=== PATIENT | female | born 1975 | race Caucasian/White ===

== ENCOUNTER 2018-02-24 10:40 | Emergency (ER) | payer BC ==
[~2018-02-24] VITALS: Ht 147.3 cm; Wt 66.2 kg
[2018-02-24 10:57] VITALS: BP_SYST 121
[2018-02-24 13:57] VITALS: BP_SYST 118
== END 2018-02-24 13:57 | disposition home or self-care (01) ==
LOC: SED 10:40
DX: S93.402A Sprain of unspecified ligament of left ankle, initial encounter (principal); Z90.710 Acquired absence of both cervix and uterus; X58.XXXA Exposure to other specified factors, initial encounter; Y93.73 Activity, racquet and hand sports; Y92.89 Other specified places as the place of occurrence of the external cause; Y99.8 Other external cause status
CPT/HCPCS: 99284

== ENCOUNTER 2018-07-15 05:47 | Emergency (ER) | payer BC ==
[~2018-07-15] VITALS: Ht 147.3 cm; Wt 63.5 kg
[2018-07-15 05:59] VITALS: BP_SYST 127
[2018-07-15 07:59] LABS: BILIRUBIN,URINE NEGATIVE (NEGATIVE); BLOOD, URINE NEGATIVE (NEGATIVE); CLARITY/URINE CLEAR (CLEAR); COLOR,URINE YELLOW (YELLOW); GLUCOSE,URINE NEGATIVE (NEGATIVE); KETONES,URINE NEGATIVE (NEGATIVE); LEUKOCYTE ESTERASE ,URINE NEGATIVE (NEGATIVE); NITRITE, URINE NEGATIVE (NEGATIVE); PH,URINE 5.5 (5.0-8.0); PROTEIN URINE NEGATIVE (NEGATIVE); UROBILINOGEN,URINE 0.2 (0.2-1.0)
[2018-07-15] MEDS ORDERED: KETOROLAC TROMETHAMINE 60 MG/2 ML VIAL IM ONE (08:00)
[2018-07-15 08:50] VITALS: BP_SYST 122
== END 2018-07-15 08:50 | disposition home or self-care (01) ==
LOC: SED 05:47
DX: S39.012A Strain of muscle, fascia and tendon of lower back, initial encounter (principal); X58.XXXA Exposure to other specified factors, initial encounter; Y93.89 Activity, other specified; Y92.89 Other specified places as the place of occurrence of the external cause; Y99.8 Other external cause status
CPT/HCPCS: 72100; 81003; 81025; 96372; 99285; J1885